=== PATIENT | female | born 1950 | race Two or more races ===

== ENCOUNTER → 2020-09-23 | Outpatient (CLI) | payer MEDICARE | END | disposition home or self-care (01) | LOC: CFH 09:46 | PROVIDERS: ATTEND Family Medicine | DX: Z12.31 Encounter for screening mammogram for malignant neoplasm of breast (principal); M81.0 Age-related osteoporosis without current pathological fracture; N95.9 Unspecified menopausal and perimenopausal disorder | CPT/HCPCS: 77067; 77080 ==

== ENCOUNTER 2020-10-26 12:36 | Inpatient (IN) | payer MEDICARE, MEDICAID ==
[~2020-10-26] VITALS: Ht 157.5 cm; Wt 57.9 kg
--- NOTE | 2020-10-26 13:22 | NUR ---
PT WALKED BACK FROM TRIAGE WITH CHIEF COMPLAINT OF NAUSEA & FEVER (REPORTED 102) WITH INTERMITTENT COUGH FOR TWO WEEKS.
--- NOTE | 2020-10-26 13:29 | NUR ---
TASK RN: PT RESTING IN [facility], NO ACUTE DISTRESS BUT APPEARS ILL. PT REPORTS FEVER, DRY COUGH, AND ABD PAIN X SEVERAL DAYS AND REPORTS SICK CONTACTS. TMAX 102.0F. TAKING TYLENOL Q6H AT HOME. HX OF HTN, OFF MEDICATIONS WHILE FEELING UNWELL. DENIES CHEST PAIN. BP/SPO2/ECG MONITORINGIN PLACE. NSR ON MONITO. PT REQUIRING SUPPLEMENTAL O2, 2L BY NC, TO MAINTAIN SPO2 >90% ON RA. RR 25-30 AND SHALLOW.
[2020-10-26 14:41] LABS: BASOPHILS % (AUTO) 1 % (0-1); EOSINOPHILS % (AUTO) 0 % (1-7); LYMPHOCYTES % (AUTO) 17 % (22-44); MEAN CORPUSCULAR HEMOGLOBIN 26.9 pg (27.0-34.8); MEAN CORPUSCULAR HGB CONC 32.7 g/dL (32.4-35.8); MONOCYTES % (AUTO) 6 % (2-9); NEUTROPHILS % (AUTO) 76 % (42-75); PLATELET COUNT 282 x10^3/uL (130-400); RED BLOOD COUNT 4.66 x10^6/uL (3.82-5.3); RED CELL DISTRIBUTION WIDTH 15.3 % (9.6-15.2)
--- NOTE | 2020-10-26 14:41 | NUR ---
XRAY AT BS
[2020-10-26 14:55] LABS: ALANINE AMINOTRANSFERASE 29 U/L (12-78); ALBUMIN 3.3 g/dL (3.4-5.0); ANION GAP 9 mmol/L (5-15); CALCIUM 8.2 mg/dL (8.5-10.1); CHLORIDE 104 mmol/L (98-107); CREATININE 0.65 mg/dL (0.55-1.02)
[2020-10-26] MEDS ORDERED: PLEASE ENTER HEIGHT AND WEIGHT MC SCH (15:00)
[2020-10-26] MEDS ORDERED: SODIUM CHLORIDE 0.9% 1,000ML IVBOLUS ONE (15:00)
[2020-10-26 15:02] LABS: ALKALINE PHOSPHATASE 45 U/L (45-117); BILIRUBIN,TOTAL 0.5 mg/dL (0.2-1.0); TOTAL PROTEIN 7.5 g/dL (6.4-8.2)
[2020-10-26] MEDS ORDERED: DEXAMETHASONE 4 MG/ML, 5ML ONE (15:13)
[2020-10-26] MEDS ORDERED: GUAIFENESIN/DM 200-20MG, 10ML UDC PO PRN (15:30)
[2020-10-26] MEDS ORDERED: GABAPENTIN 300 MG CAPSULE PO PRN (15:30)
[2020-10-26] MEDS ORDERED: BUTALB/APAP/CAFFEINE 50MG/325MG/40MG PO PRN (15:30)
[2020-10-26] MEDS ORDERED: ENALAPRILAT 1.25 MG/ML, 2ML IVPush PRN (15:30)
[2020-10-26] MEDS ORDERED: hydrALAzine 20 MG/ML, 1ML IVPush PRN (15:30)
[2020-10-26] MEDS ORDERED: CEFTRIAXONE 1,000 MG in DEXTROSE 5% 50 ML IVPB ONE (15:30)
[2020-10-26] MEDS ORDERED: AZITHROMYCIN 500 MG in SODIUM CHLORIDE 0.9% 250 ML IV ONE (15:30)
[2020-10-26] MEDS ORDERED: ONDANSETRON ODT 4 MG PO PRN (15:30)
[2020-10-26] MEDS ORDERED: CYANOCOBALAMIN 1,000 MCG/ML, 1ML IM ONE (15:30)
[2020-10-26] MEDS ORDERED: DEXAMETHASONE 4 MG/ML, 1ML IVPush ONE (15:30)
--- NOTE | 2020-10-26 15:30 | NUR ---
PT RESTING ON [facility]/PABLOS. DAUGHTER AT BS. CALL LIGHT WITHIN REACH. BED RAILS UP X2
[2020-10-26] MEDS ORDERED: HYDR25TA6 PO (15:54)
[2020-10-26] MEDS ORDERED: ROSU5TAB12 PO (15:54)
[2020-10-26] MEDS ORDERED: LOSA25TA25 PO (15:54)
[2020-10-26] MEDS ORDERED: ALBUTEROL HFA 90 MCG/SPRAY INH PRN (16:00)
[2020-10-26 16:20] LABS: INTERNATIONAL NORMALIZED RATIO 1.09 (0.93-1.1); PROTHROMBIN TIME 11.6 Seconds (9.6-11.5)
[2020-10-26 16:29] LABS: HCT (SEDRATE) 38.3 % (34.6-47.8)
--- NOTE | 2020-10-26 17:01 | NUR ---
Pt to be admitted to [facility], room 495. Report called to SANDI.
[2020-10-26] MEDS: ASCORBIC ACID 500 MG TABLET PO SCH (18:44)
[2020-10-26] MEDS: ENOXAPARIN 40 MG/0.4 ML SQ SCH (18:44)
[2020-10-26 19:46] VITALS: BP 151/87
[2020-10-26] MEDS: methylPREDNISolone SOD SUCC 40 MG/ML IV SCH (22:44)
[2020-10-26] MEDS: MELATONIN 5 MG TABLET PO SCH (22:45)
[2020-10-27 00:12] VITALS: BP 130/75
[2020-10-27 05:32] LABS: ALANINE AMINOTRANSFERASE 31 U/L (12-78); ALBUMIN 2.7 g/dL (3.4-5.0); ANION GAP 10 mmol/L (5-15); CALCIUM 7.7 mg/dL (8.5-10.1); CHLORIDE 110 mmol/L (98-107); CREATININE 0.61 mg/dL (0.55-1.02)
[2020-10-27 05:34] LABS: ALKALINE PHOSPHATASE 42 U/L (45-117); BILIRUBIN,TOTAL 0.4 mg/dL (0.2-1.0); TOTAL PROTEIN 6.8 g/dL (6.4-8.2)
[2020-10-27 07:14] LABS: MEAN CORPUSCULAR HEMOGLOBIN 26.8 pg (27.0-34.8); MEAN CORPUSCULAR HGB CONC 32.4 g/dL (32.4-35.8); MEAN PLATELET VOLUME 7.2 fL (7.4-10.4); PLATELET COUNT 308 x10^3/uL (130-400); RED BLOOD COUNT 4.61 x10^6/uL (3.82-5.3); RED CELL DISTRIBUTION WIDTH 15.3 % (9.6-15.2)
[2020-10-27 07:45] VITALS: BP 146/73
[2020-10-27 07:49] LABS: BAND#(MANUAL) 0.02 x10^3/uL; BANDS%(MANUAL) 1 % (0-7); LYMPH#(MANUAL) 0.56 x10^3/uL (1-3.4); LYMPHS% (MANUAL) 35 % (22-44); MONOS% (MANUAL) 6 % (2-9); SEG#(MANUAL) 0.93 x10^3/uL (1.8-6.8); SEGS% (MANUAL) 58 % (42-75)
[2020-10-27 07:51] LABS: ANISOCYTOSIS 1+; ECHINOCYTES 1+; OVALOCYTES 1+
[2020-10-27 07:52] LABS: <PLATELET ESTIMATE> ADEQUATE; <PLT MORPHOLOGY> NORMAL PLT MORPH
[2020-10-27] MEDS: MULTIVITS,STRESS FORMULA 1 TABLET PO SCH (09:26)
[2020-10-27] MEDS: ASCORBIC ACID 500 MG TABLET PO SCH ×2 (09:26→17:51)
[2020-10-27] MEDS: CHOLECALCIFEROL 5,000u TAB PO SCH (09:26)
[2020-10-27] MEDS: ZINC SULFATE 220 MG CAPSULE PO SCH (09:27)
[2020-10-27] MEDS: SENNA/DOCUSATE TABLET PO SCH (09:27)
[2020-10-27] MEDS: ONDANSETRON 2MG/ML, 2ML IVPush PRN (09:27)
[2020-10-27] MEDS: methylPREDNISolone SOD SUCC 40 MG/ML IV SCH ×2 (09:27→22:17)
[2020-10-27 12:28] VITALS: BP 156/84
[2020-10-27] MEDS: ENOXAPARIN 40 MG/0.4 ML SQ SCH (17:51)
[2020-10-27 19:34] VITALS: BP 125/74
[2020-10-27] MEDS: MELATONIN 5 MG TABLET PO SCH (21:00)
[2020-10-27] MEDS: ATORVASTATIN 20 MG TABLET PO SCH (22:16)
[2020-10-28 01:51] VITALS: BP 147/87
[2020-10-28 05:52] LABS: BASOPHILS % (AUTO) 0 % (0-1); EOSINOPHILS % (AUTO) 0 % (1-7); LYMPHOCYTES % (AUTO) 21 % (22-44); MEAN CORPUSCULAR HGB CONC 33.2 g/dL (32.4-35.8); MEAN PLATELET VOLUME 7.1 fL (7.4-10.4); MONOCYTES % (AUTO) 7 % (2-9); NEUTROPHILS % (AUTO) 72 % (42-75); PLATELET COUNT 369 x10^3/uL (130-400); RED BLOOD COUNT 4.63 x10^6/uL (3.82-5.3); RED CELL DISTRIBUTION WIDTH 15.3 % (9.6-15.2)
[2020-10-28 06:05] LABS: ALBUMIN 2.9 g/dL (3.4-5.0); ANION GAP 6 mmol/L (5-15); CALCIUM 8.6 mg/dL (8.5-10.1); CHLORIDE 111 mmol/L (98-107); CREATININE 0.72 mg/dL (0.55-1.02)
[2020-10-28 07:36] VITALS: BP 172/79
[2020-10-28] MEDS: ASCORBIC ACID 500 MG TABLET PO SCH ×2 (08:37→16:41)
[2020-10-28] MEDS: MULTIVITS,STRESS FORMULA 1 TABLET PO SCH (08:37)
[2020-10-28] MEDS: CHOLECALCIFEROL 5,000u TAB PO SCH (08:38)
[2020-10-28] MEDS: SENNA/DOCUSATE TABLET PO SCH ×2 (08:38→08:45)
[2020-10-28] MEDS: HYDROCHLOROTHIAZIDE 25 MG TABLET PO SCH (08:38)
[2020-10-28] MEDS: LOSARTAN 25MG TABLET PO SCH (08:38)
[2020-10-28] MEDS: methylPREDNISolone SOD SUCC 40 MG/ML IV SCH (08:42)
[2020-10-28] MEDS: ZINC SULFATE 220 MG CAPSULE PO SCH (08:46)
[2020-10-28] MEDS: DEXAMETHASONE 4 MG/ML, 1ML IVPush SCH (09:00)
[2020-10-28 10:38] VITALS: BP 128/68
[2020-10-28] MEDS: ONDANSETRON 2MG/ML, 2ML IVPush PRN (11:40)
[2020-10-28 13:46] VITALS: BP 157/70
[2020-10-28] MEDS: ENOXAPARIN 40 MG/0.4 ML SQ SCH (14:48)
[2020-10-28 20:00] VITALS: BP 117/67
[2020-10-28] MEDS: ATORVASTATIN 20 MG TABLET PO SCH (20:34)
[2020-10-28] MEDS: MELATONIN 5 MG TABLET PO SCH (21:00)
[2020-10-29 01:14] VITALS: BP 144/86
[2020-10-29 05:47] LABS: BASOPHILS % (AUTO) 0 % (0-1); EOSINOPHILS % (AUTO) 0 % (1-7); LYMPHOCYTES % (AUTO) 15 % (22-44); MEAN CORPUSCULAR HGB CONC 33.4 g/dL (32.4-35.8); MEAN PLATELET VOLUME 7.1 fL (7.4-10.4); MONOCYTES % (AUTO) 8 % (2-9); NEUTROPHILS % (AUTO) 77 % (42-75); PLATELET COUNT 393 x10^3/uL (130-400); RED BLOOD COUNT 4.47 x10^6/uL (3.82-5.3); RED CELL DISTRIBUTION WIDTH 15.8 % (9.6-15.2)
[2020-10-29 06:01] LABS: ANION GAP 7 mmol/L (5-15); CALCIUM 8.4 mg/dL (8.5-10.1); CHLORIDE 112 mmol/L (98-107); CREATININE 0.87 mg/dL (0.55-1.02)
[2020-10-29 08:19] VITALS: BP 144/78
[2020-10-29] MEDS: DEXAMETHASONE 4 MG/ML, 1ML IVPush SCH (10:04)
[2020-10-29] MEDS: MULTIVITS,STRESS FORMULA 1 TABLET PO SCH (10:04)
[2020-10-29] MEDS: CHOLECALCIFEROL 5,000u TAB PO SCH (10:04)
[2020-10-29] MEDS: ASCORBIC ACID 500 MG TABLET PO SCH ×2 (10:04→17:27)
[2020-10-29] MEDS: ZINC SULFATE 220 MG CAPSULE PO SCH (10:04)
[2020-10-29] MEDS: HYDROCHLOROTHIAZIDE 25 MG TABLET PO SCH (10:04)
[2020-10-29] MEDS: LOSARTAN 25MG TABLET PO SCH (10:05)
[2020-10-29] MEDS: SENNA/DOCUSATE TABLET PO SCH (10:05)
[2020-10-29] MEDS ORDERED: DEXA6TAB6 PO (11:50)
[2020-10-29] MEDS ORDERED: ZINC220C8 PO (11:50)
[2020-10-29] MEDS ORDERED: CEFD300C37 PO (11:50)
[2020-10-29] MEDS ORDERED: MELA5TAB14 PO (11:50)
[2020-10-29] MEDS ORDERED: CHOL500045 PO (11:50)
[2020-10-29] MEDS ORDERED: ALBU18HF INH (11:50)
[2020-10-29] MEDS ORDERED: ASCO500T9 PO (11:50)
[2020-10-29] MEDS ORDERED: AZIT500T10 PO (11:50)
[2020-10-29] MEDS: ENOXAPARIN 40 MG/0.4 ML SQ SCH (17:27)
== END 2020-10-29 17:36 | disposition home or self-care (01) | DRG 177 ==
LOC: ED 13:06 → EDIP 17:42 → 4EST 17:49
PROVIDERS: ADMIT Family Medicine; ATTEND Internal Medicine
DX: U07.1 COVID-19 (principal); J96.01 Acute respiratory failure with hypoxia; J12.82 Pneumonia due to coronavirus disease 2019; E78.5 Hyperlipidemia, unspecified; I10 Essential (primary) hypertension
CPT/HCPCS: 36415; 71045; 80048; 80053; 80069; 82728; 83605; 83735; 84100; 84145; 85025; 85610; 85651; 86140; 87040; 93005; 96361; 96365; 96366; 96375; G0378; J0456; J0696; J1100; J1650; J2405; Q0162; U0005; J0360; J2920; J3420; J7030; J7050; U0003